=== PATIENT | male | born 1970 | race Caucasian/White ===

== ENCOUNTER 2023-03-20 08:16 | Emergency (ER) | payer BC, SELFPAY ==
[2023-03-20 08:23] VITALS: BP 175/88; PULSE 71; RESP 17; TEMP 36.4; O2SAT 98
[2023-03-20] MEDS: diazePAM (*CRX) 5 MG TABLET 2.5 MG PO (08:46)
--- NOTE | 2023-03-20 10:03 | ED.BACK ---
HPI - Back Pain/Injury General Chief Complaint: Back Pain/Injury Stated Complaint: back spasms Time Seen by Provider: 03/20/23 08:32 History of Present Illness HPI Narrative: Patient is a 53-year-old male who presents ER with back pain. Left-sided. Worse with any twisting or bending or other movements. Sudden onset yesterday. No trauma or known injury. 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 No lower extremity numbness or weakness. No difficulty with urination/defecation. Denies fevers or chills or sweats. No alleviating factors at home Related Data Allergies Allergy/AdvReac Type Severity Reaction Status Date / Time aspirin Allergy Mild Other Verified 03/20/23 08:26 Review of Systems Review of Systems: All systems reviewed & are unremarkable except as noted in HPI and below Constitutional: Constitutional: Denies chills and Denies fever(s) Musculoskeletal: Musculoskeletal: Reports back pain, Denies arthralgias, Denies joint swelling and Reports muscle cramps Integumentary/Breasts: Skin/Breast: Denies erythema and Denies rash Neurologic: Denies focal weakness and Denies numbness PMFSH Past Medical History Medical History (Updated 03/20/23 @ 10:07 by Lexx Rai MD) No pertinent past medical history Surgical History Surgical History (Updated 03/20/23 @ 10:07 by Lexx Rai MD) No history of previous surgery Exam Narrative: GENERAL: Uncomfortable appearing and sitting straight upright, well-nourished, and in no acute distress. HEAD: Normocephalic, atraumatic. CHEST: Clear to auscultation. No respiratory distress. HEART: Regular rate and rhythm. Normal peripheral pulses. Back: Left side paraspinal tenderness from T12-L3 with palpable spasm, no midline tenderness of T/L-spine.. EXTREMITIES: Normal range of motion. No edema. SKIN: Warm, dry, no rash. NEURO: Alert and oriented x3. PSYCH: Normal mood and affect. Course Course Emergency Course: Patient given Toradol and Valium. Feels he is ready to be discharged home. Will treat with antiinflammatories muscle relaxers for home. Patient without any trauma or neurologic deficit requiring imaging. Vital Signs Vital signs: Vital Signs Temperature 97.6 F 03/20/23 08:23 Pulse Rate 71 03/20/23 08:23 Respiratory Rate 17 03/20/23 08:23 Blood Pressure 175/88 H 03/20/23 08:23 Pulse Oximetry 98 03/20/23 08:23 Oxygen Delivery Room Air 03/20/23 08:23 Temperature 97.6 F 03/20/23 08:23 Pulse Rate 71 03/20/23 08:23 Respiratory Rate 17 03/20/23 08:23 Blood Pressure 175/88 H 03/20/23 08:23 Pulse Oximetry 98 03/20/23 08:23 Oxygen Delivery Room Air 03/20/23 08:23 Discharge Plan Discharge Clinical Impression: Back muscle spasm Patient Disposition: Home, Self-Care Condition: Stable Instructions: Acute Low Back Pain (ED) Additional Instructions: Return to the ER if you have increased pain in your back, you develop lower extremity weakness/numbness/paralysis, you have numbness or tingling in your private parts, or you are unable to control your ability to urinate/stool. Prescriptions: New cyclobenzaprine 10 mg tablet 10 mg PO TID PRN (Reason: muscle spasm) Qty: 20 0RF naproxen 500 mg tablet 500 mg PO BID Qty: 14 0RF omeprazole 20 mg capsule,delayed release(DR/EC) 20 mg PO DAILY Qty: 7 0RF Follow-up/Referrals: PHYSICIAN NOT ON STAFF,NONSTAFF [Primary Care Provider] - 1 Week
[2023-03-20 10:10] VITALS: BP 165/89; PULSE 77; RESP 18; O2SAT 100
== END 2023-03-20 10:13 | disposition home or self-care (01) ==
PROVIDERS: Emergency Provider Emergency Medicine
DX: M62.830 Muscle spasm of back (principal)
CPT/HCPCS: 99283; A9270